=== PATIENT | male | born 1955 | race Caucasian/White ===

== ENCOUNTER 2017-02-05 13:02 | Emergency (ER) | payer BC, OTHER ==
[~2017-02-05] VITALS: Ht 160 cm; Wt 60.0 kg
[~2017-02-05 13:02] MED LIST: ALPR0.5T99 PO; ASPI81 PO; DEXI30CA2 PO; EZET10 PO; NIAC500 PO; ROSU5 PO; SERT100 PO
[2017-02-05 13:06] VITALS: BP 154/93; PULSE 81; RESP 13; TEMP 98.2; O2SAT 97
--- NOTE | 2017-02-05 13:13 | PD ---
Physical Exam Time Seen by Provider: 13:11 Narrative Pt states he "just doesn't feel well." Has been increasingly tired, worsening over the last 2 weeks. Denies chest pain. Reports history of B12 deficiency. 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 Fever/chills yesterday. No SOB, cough, or chest congestion. No other symptoms. Data Data Last Documented VS Vital Signs Date Time Temp Pulse Resp B/P (MAP) Pulse Ox O2 Delivery O2 Flow Rate FiO2 02/05/17 19:00 02/05/17 18:38 70 16 99 Room Air 02/05/17 14:49 97.6 Orders Orders Electrocardiogram (02/05/17 13:14) Basic Metabolic Panel (Bmp) (02/05/17 13:14) Complete Blood Count With Diff (02/05/17 13:14) Magnesium (Mg) (02/05/17 13:14) Chest, Pa & Lat (02/05/17 13:14) Thyroid Stimulating Hormone (02/05/17 14:56) Urinalysis - C+S If Indicated (02/05/17 14:56) Labs Laboratory Tests Test 02/05/17 13:20 02/05/17 16:00 White Blood Count 4.7 TH/MM3 Red Blood Count 5.29 MIL/MM3 Hemoglobin 15.6 GM/DL Hematocrit 46.7 % Mean Corpuscular Volume 88.2 FL Mean Corpuscular Hemoglobin 29.4 PG Mean Corpuscular Hemoglobin Concent 33.3 % Red Cell Distribution Width 14.1 % Platelet Count 186 TH/MM3 Mean Platelet Volume 7.5 FL Neutrophils (%) (Auto) 52.0 % Lymphocytes (%) (Auto) 32.7 % Monocytes (%) (Auto) 10.0 % Eosinophils (%) (Auto) 4.2 % Basophils (%) (Auto) 1.1 % Neutrophils # (Auto) 2.4 TH/MM3 Lymphocytes # (Auto) 1.5 TH/MM3 Monocytes # (Auto) 0.5 TH/MM3 Eosinophils # (Auto) 0.2 TH/MM3 Basophils # (Auto) 0.1 TH/MM3 CBC Comment DIFF FINAL Differential Comment Blood Urea Nitrogen 12 MG/DL Creatinine 0.88 MG/DL Random Glucose 87 MG/DL Calcium Level 9.0 MG/DL Magnesium Level 2.3 MG/DL Sodium Level 141 MEQ/L Potassium Level 3.9 MEQ/L Chloride Level 106 MEQ/L Carbon Dioxide Level 28.3 MEQ/L Anion Gap 7 MEQ/L Estimat Glomerular Filtration Rate 88 ML/MIN Thyroid Stimulating Hormone 3rd Gen 1.120 uIU/ML Urine Color YELLOW Urine Turbidity CLEAR Urine pH 6.5 Urine Specific [place] 1.012 Urine Protein NEG mg/dL Urine Glucose (UA) NEG mg/dL Urine Ketones NEG mg/dL Urine Occult Blood NEG Urine Nitrite NEG Urine Bilirubin NEG Urine Urobilinogen LESS THAN 2.0 MG/DL Urine Leukocyte Esterase NEG Urine RBC 1 /hpf Urine WBC LESS THAN 1 /hpf Urine Mucus FEW /lpf Microscopic Urinalysis Comment CULT NOT INDICATED MDM Medical Record Reviewed: Yes Supervised Visit with STAN: No Condition: Stable Vilma Garcia Feb 05, 2017 13:13
[2017-02-05 13:53] LABS: AUTOMATED NEUTROPHIL # 2.4 TH/MM3 (1.8-7.7); BASOPHIL # 0.1 TH/MM3 (0-0.2); BASOPHIL % 1.1 % (0.0-2.0); EOSINOPHIL # 0.2 TH/MM3 (0-0.4); EOSINOPHIL % 4.2 % (0.0-4.0); HEMATOCRIT 46.7 % (39.0-51.0); HEMO FLAGS DIFF FINAL; LYMPH % 32.7 % (9.0-44.0); LYMPHOCYTE # 1.5 TH/MM3 (1.0-4.8); MEAN CELL VOLUME 88.2 FL (80.0-100.0); MEAN CORPUSCULAR HEMOGLOBIN 29.4 PG (27.0-34.0); MEAN CORPUSCULAR HGB CONC 33.3 % (32.0-36.0); PLATELET COUNT 186 TH/MM3 (150-450); RED BLOOD COUNT 5.29 MIL/MM3 (4.50-5.90); RED CELL DISTRIBUTION WIDTH 14.1 % (11.6-17.2); WHITE BLOOD COUNT 4.7 TH/MM3 (4.0-11.0)
--- NOTE | 2017-02-05 14:01 | RADRPT ---
EXAM DATE/TIME: 02/05/2017 13:47 [facility] COMPARISON: No previous studies available for comparison. INDICATIONS : Congestion, difficult to stay awake MEDICAL HISTORY : hx of bronchitis SURGICAL HISTORY : CABG. ENCOUNTER: Initial ACUITY: 2 days PAIN SCORE: 0/10 LOCATION: Bilateral chest FINDINGS: PA and lateral views of the chest demonstrate the lungs to be symmetrically aerated without evidence of mass, infiltrate or effusion. Postsurgical features of prior CABG. The cardiomediastinal contours are unremarkable. Lower cervical fixation hardware. Osseous structures are intact. CONCLUSION: 1. No acute cardiopulmonary disease. Aubrey Espinoza MD on February 05, 2017 at 13:59 Board Certified Radiologist. This report was verified electronically.
[2017-02-05 14:03] LABS: BICARBONATE 28.3 MEQ/L (21.0-32.0); MAGNESIUM 2.3 MG/DL (1.5-2.5); POTASSIUM 3.9 MEQ/L (3.5-5.1)
[2017-02-05 14:49] VITALS: BP 127/86; PULSE 73; RESP 16; TEMP 97.6; O2SAT 99
[2017-02-05] MEDS ORDERED: VITATAB11 PO (15:13)
[2017-02-05] MEDS ORDERED: ZETI10TA5 PO (15:13)
[2017-02-05] MEDS ORDERED: ROSU20 PO (15:13)
[2017-02-05] MEDS ORDERED: ASPI81CH CHEW (15:13)
[2017-02-05] MEDS ORDERED: ALPR.25 PO (15:13)
--- NOTE | 2017-02-05 15:19 | PD ---
HPI Chief Complaint: General Weakness Time Seen by Provider: 14:43 Travel History International Travel<30 days: No Contact w/Intl Traveler<30days: No Traveled to known affect area: No History of Present Illness HPI 61yo M with PMH of B12 deficiency currently taking B12 here with c/o generalized fatigue for a few weeks. States he just feels tired. Feeling cold for the last few days. Denies any fever, chest pain, sob, n/v, abdominal pain, focal weakness or numbness or trauma. PFSH Past Medical History Blood Disorders: No Anxiety: Yes Depression: Yes Heart Rhythm Problems: Yes Cancer: No Cardiac Catheterization: Yes Cardiovascular Problems: Yes High Cholesterol: Yes Chest Pain: Yes Congestive Heart Failure: No Coronary Artery Disease: Yes Diabetes: No Diminished Hearing: No Endocrine: No Glaucoma: No Genitourinary: No Hepatitis: No Hiatal Hernia: No Hypertension: Yes (HIGH CHOLESTEROL) Immune Disorder: No Musculoskeletal: No Neurologic: No Psychiatric: Yes Reproductive: No Respiratory: No Myocardial Infarction: Yes Thyroid Disease: No Tetanus Vaccination: > 5 Years Influenza Vaccination: No Past Surgical History Abdominal Surgery: No Cardiac Surgery: Yes (CABG X4 VESSELS) Coronary Artery Bypass Graft: Yes Ear Surgery: No Endocrine Surgery: No Eye Surgery: No Genitourinary Surgery: No Gynecologic Surgery: No Oral Surgery: No Pacemaker: No Thoracic Surgery: No Other Surgery: Yes (HEMORRHOIDECTOMY, RADIO FREQUENCY FOR CHRONIC BACK PAIN) Social History Alcohol Use: No Tobacco Use: No Substance Use: No Allergies-Medications (Allergen,Severity, Reaction): Coded Allergies: Sulfa (Sulfonamide Antibiotics) (Unverified Allergy, Severe, RASH, 02/05/17 ) penicillin G (Unverified Allergy, Severe, RASH, 02/05/17) Reported Meds & Prescriptions Reported Meds & Active Scripts Active Reported Xanax (Alprazolam) 0.25 Mg Tab 0.25 Mg PO HS PRN Vitamin B Complex (B-Complex Vitamins) 1 Tab 600 Mcg PO BID Aspirin 81 Mg Chew 81 Mg CHEW DAILY Zetia (Ezetimibe) 10 Mg Tab 5 Mg PO DAILY Crestor (Rosuvastatin Calcium) 20 Mg Tab 20 Mg PO DAILY Review of Systems Except as stated in HPI: all other systems reviewed are Neg Physical Exam Narrative GENERAL: 61yo M not in distress. SKIN: Focused skin assessment warm/dry. HEAD: Atraumatic. Normocephalic. EYES: Pupils equal and round. No scleral icterus. No injection or drainage. ENT: No nasal bleeding or discharge. Mucous membranes pink and moist. NECK: Trachea midline. No JVD. CARDIOVASCULAR: Regular rate and rhythm. No murmur appreciated. RESPIRATORY: No accessory muscle use. Clear to auscultation. Breath sounds equal bilaterally. GASTROINTESTINAL: Abdomen soft, non-tender, nondistended. MUSCULOSKELETAL: No obvious deformities. No clubbing. No cyanosis. No edema. NEUROLOGICAL: Awake and alert. No obvious cranial nerve deficits. Motor grossly within normal limits. Normal speech. PSYCHIATRIC: Appropriate mood and affect; insight and judgment normal. Data Data Last Documented VS Vital Signs Date Time Temp Pulse Resp B/P (MAP) Pulse Ox O2 Delivery O2 Flow Rate FiO2 02/05/17 14:49 97.6 73 16 127/86 (100) 99 Orders Orders Electrocardiogram (02/05/17 13:14) Basic Metabolic Panel (Bmp) (02/05/17 13:14) Complete Blood Count With Diff (02/05/17 13:14) Magnesium (Mg) (02/05/17 13:14) Chest, Pa & Lat (02/05/17 13:14) Thyroid Stimulating Hormone (02/05/17 14:56) Urinalysis - C+S If Indicated (02/05/17 14:56) Labs Laboratory Tests Test 02/05/17 13:20 02/05/17 16:00 White Blood Count 4.7 TH/MM3 Red Blood Count 5.29 MIL/MM3 Hemoglobin 15.6 GM/DL Hematocrit 46.7 % Mean Corpuscular Volume 88.2 FL Mean Corpuscular Hemoglobin 29.4 PG Mean Corpuscular Hemoglobin Concent 33.3 % Red Cell Distribution Width 14.1 % Platelet Count 186 TH/MM3 Mean Platelet Volume 7.5 FL Neutrophils (%) (Auto) 52.0 % Lymphocytes (%) (Auto) 32.7 % Monocytes (%) (Auto) 10.0 % Eosinophils (%) (Auto) 4.2 % Basophils (%) (Auto) 1.1 % Neutrophils # (Auto) 2.4 TH/MM3 Lymphocytes # (Auto) 1.5 TH/MM3 Monocytes # (Auto) 0.5 TH/MM3 Eosinophils # (Auto) 0.2 TH/MM3 Basophils # (Auto) 0.1 TH/MM3 CBC Comment DIFF FINAL Differential Comment Blood Urea Nitrogen 12 MG/DL Creatinine 0.88 MG/DL Random Glucose 87 MG/DL Calcium Level 9.0 MG/DL Magnesium Level 2.3 MG/DL Sodium Level 141 MEQ/L Potassium Level 3.9 MEQ/L Chloride Level 106 MEQ/L Carbon Dioxide Level 28.3 MEQ/L Anion Gap 7 MEQ/L Estimat Glomerular Filtration Rate 88 ML/MIN Thyroid Stimulating Hormone 3rd Gen 1.120 uIU/ML Urine Color YELLOW Urine Turbidity CLEAR Urine pH 6.5 Urine Specific [place] 1.012 Urine Protein NEG mg/dL Urine Glucose (UA) NEG mg/dL Urine Ketones NEG mg/dL Urine Occult Blood NEG Urine Nitrite NEG Urine Bilirubin NEG Urine Urobilinogen LESS THAN 2.0 MG/DL Urine Leukocyte Esterase NEG Urine RBC 1 /hpf Urine WBC LESS THAN 1 /hpf Urine Mucus FEW /lpf Microscopic Urinalysis Comment CULT NOT INDICATED MDM Medical Decision Making Medical Screen Exam Complete: Yes Emergency Medical Condition: Yes Differential Diagnosis Electrolyte abnormality vs. hypothyroidism vs. UTI Narrative Course 61yo M with c/o generalized fatigue. Labs reviewed, no leukocytosis. BMP unremarkable. Magnesium normal. I ordered TSH since pt has been feeling cold and has vague complaints. TSH is normal. UA negative. CXR showed no acute cardiopulmonary disease. Pt has been reevaluated at bedside and feels a little better. Said he has been sleeping here. He has good follow up and can follow up with pmd tomorrow. Diagnosis Primary Impression: Fatigue Qualified Codes: R53.83 - Other fatigue Patient Instructions: General Instructions Departure Forms: Tests/Procedures Additional Instructions: Please follow up with your primary care physician tomorrow. Return to the ED if symptoms worsen. Med/Other Pt SpecificInfo: No Change to Meds Disposition: 01 DISCHARGE HOME Condition: Stable Latoya Jimenez DO Feb 05, 2017 15:19
[2017-02-05 16:00] VITALS: BP 102/58; PULSE 72; RESP 16; O2SAT 99
[2017-02-05 16:55] LABS: BLOOD, URINE NEG (NEG); COMMENT (UR) CULT NOT INDICATED; CULTURE IF INDICATED CULT NOT INDICATED; GLUCOSE,URINE NEG (NEG); KETONE, URINE NEG (NEG); MUCUS URINE FEW /lpf (OCC); NITRITE,URINE NEG (NEG); PH, URINE 6.5 (5.0-8.5); URINE COLOR YELLOW (YELLW/STRAW)
[2017-02-05 18:38] VITALS: BP 99/58; PULSE 70; RESP 16; O2SAT 99
--- NOTE | 2017-02-06 08:15 | EKG ---
Date Performed: 02/05/2017 Time Performed: 13:32:27 PTAGE: 61 years EKG: Sinus rhythm NORMAL ECG Compared to prior tracing no significant change PREVIOUS TRACING : 10/22/2012 02.19 DOCTOR: Pam Lambert Interpretating Date/Time 02/06/2017 08:12:23
== END 2017-02-05 19:01 | disposition home or self-care (01) ==
LOC: NEPC 13:02
DX: R53.83 Other fatigue (principal); E53.8 Deficiency of other specified B group vitamins; F41.9 Anxiety disorder, unspecified; F32.9 Major depressive disorder, single episode, unspecified; E78.00 Pure hypercholesterolemia, unspecified; I25.10 Atherosclerotic heart disease of native coronary artery without angina pectoris; I25.2 Old myocardial infarction; Z79.82 Long term (current) use of aspirin; Z79.899 Other long term (current) drug therapy
CPT/HCPCS: 71020; 80048; 81001; 83735; 84443; 85025; 93005; 99285